=== PATIENT | male | born 1955 | race Caucasian/White ===

== ENCOUNTER 2024-07-20 15:40 | Emergency (ER) | payer MEDICARE, BC ==
[~2024-07-20] VITALS: Ht 165.1 cm; Wt 66.7 kg
[2024-07-20 16:16] VITALS: TEMP 97.9
[2024-07-20] MEDS: TRAMADOL HCL 50 MG TAB PO STA (16:38)
[2024-07-20 17:30] VITALS: PULSE 67; RESP 16
[2024-07-20] MEDS ORDERED: ULTRAM 50MG50 MG PO (18:04)
[2024-07-20 18:23] VITALS: BP 123/75; PULSE 67; RESP 16; O2SAT 100
== END 2024-07-20 18:20 | disposition home or self-care (01) ==
LOC: ER 15:57
DX: S01.81XA Laceration without foreign body of other part of head, initial encounter (principal); S42.292A Other displaced fracture of upper end of left humerus, initial encounter for closed fracture; M25.562 Pain in left knee; M25.561 Pain in right knee; W11.XXXA Fall on and from ladder, initial encounter; Y92.89 Other specified places as the place of occurrence of the external cause; I25.10 Atherosclerotic heart disease of native coronary artery without angina pectoris; Z95.1 Presence of aortocoronary bypass graft
CPT/HCPCS: 70450; 72125; 99283